=== PATIENT | female | born 2005 | race African-American/Black ===

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

== ENCOUNTER 2024-01-13 13:41 | Outpatient (CLI) | payer OTHER, SELFPAY ==
--- NOTE | ~2024-01-13 | US_ITS ---
EXAMINATION: US OB follow up DATE: 01/13/2024 14:45 INDICATION: Third trimester. TECHNIQUE: Real-time ultrasound of the pelvis was performed. COMPARISON: Ultrasound 12/17/2023, 05/29/2023 FINDINGS: There is a single living fetus in vertex presentation. The placenta is fundal. heart rate is 1 31 beats per minute (bpm). The amniotic fluid index is 8.2 cm, which is normal. The following biometric data were obtained: Biparietal diameter (BPD): 9.3 cm; head circumference (HC): 31.9 cm; abdominal circumference (AC): 32 .4 cm; femur length (FL): 7.1 cm. These measurements are discordant with high cephalic index. Estimated weight is 2946 g +/- 442 g, which correlates with the 17th percentile when 01/23/24 is used as estimated date of delivery. As single measurements, these parameters are each equal to the following estimated gestational ages: BPD: 38 weeks 0 days. HC: 36 weeks 0 days. AC: 36 weeks 2 days. FL: 36 weeks 2 days. estimated gestational age based solely on measurements from this exam is 36 weeks 5 days +/- 2 weeks 4 days. IMPRESSION: 1. Single living fetus in vertex presentation. 2. Estimated weight is 2946 g +/- 442 g, which correlates with the 17th percentile when 4 is used as estimated date of delivery. This date was set by ultrasound on 05/29/2023. 3. Discordant biometrics with high cephalic index. Reviewed, dictated and finalized at location A. IMPRESSION: 1. Single living fetus in vertex presentation. 2. Estimated weight is 2946 g +/- 442 g, which correlates with the 17th percentile when 01/23/24 is used as estimated date of delivery. This date was se t by ultrasound on 05/29/2023. 3. Discordant biometrics with high cephalic index.
== END 2024-01-13 13:42 | disposition home or self-care (01) ==
PROVIDERS: Visit Provider Obstetrics & Gynecology
DX: Z34.90 Encounter for supervision of normal pregnancy, unspecified, unspecified trimester (principal)
CPT/HCPCS: 76816

== ENCOUNTER 2024-01-18 02:24 | Inpatient (IN) | payer OTHER, SELFPAY ==
[2024-01-18] VITALS (146 sets, daily range): BP systolic 95–165; BP diastolic 14–125; PULSE 29–252; RESP 16–20; TEMP 36.3–37.1; O2SAT 79–100; BMI 28.8
[2024-01-18] MEDS: AMPICILLIN 2 GM/NS 100 ML 2 GM/100 ML BAG IVPB (04:10)
[2024-01-18] MEDS: LACTATED RINGERS 1,000 ML 125 ML IV CONT ×2 (04:10→05:43)
[2024-01-18 04:12] LABS: Basophils Percent Auto 0.2 % (0.2-1.2); Eosinophils Absolute Auto 0.1 K/mm3 (0-0.3); Eosinophils Percent Auto 0.4 % (0-4.4); Hematocrit 39.6 % (37.0-47.0); Hemoglobin 12.8 g/dL (12.0-15.0); Immature Granulocyte Absolute 0.08 K/mm3 (0.00-0.031); Immature Granulocyte Percent A 0.6 % (0-0.5); Lymphocytes Absolute Auto 3.41 K/mm3 (0.9-3.2); Lymphocytes Percent Auto 27.2 % (18.3-44.2); Mean Corpuscular HGB Conc 32.3 g/dl (32-36); Mean Corpuscular Hemoglobin 25.8 pg (26-34); Mean Corpuscular Volume 79.8 fl (80-100); Mean Platelet Volume 12.9 fl (7.4-10.4); Monocytes Absolute Auto 1.8 K/mm3 (0.1-0.6); Neutrophils Absolute Auto 7.2 K/mm3 (1.3-6.7); Neutrophils Percent Auto 57.6 % (45.5-73.1); Platelet Count Result 192 k/mm3 (150-375); Red Blood Count 4.96 M/mm3 (4.2-5.4); White Blood Count 12.5 K/mm3 (4.5-10.0)
--- NOTE | 2024-01-18 04:13 | LDADM ---
This patient, Lainey Fishman, was admitted to Labor/Delivery/Recovery 105 on 01/18/24 at 02:24. Plans for labor, pain management and were discussed with patient. Patient/family oriented to hospital policies and general routines including ID bracelet, bed and alarms, visiting hours, pain management, procedures, bathroom and other care routines, personal items, smoking policy, room service/diet and guest tray routines, infant security routines, and visiting hours. Patient/Family are encouraged to report perceived risks to care and to ask questions if they do not understand what they are told or what they should do. See OBIX for further documentation.
[2024-01-18] MEDS: ONDANSETRON INJ 4 MG/2 ML VIAL IV PUSH (04:22)
[2024-01-18 04:27] LABS: Giant Platelets Present; Platelet Estimate Adequate (Adequate)
[2024-01-18 04:28] LABS: Anisocytosis 1+; Schistocytes None Seen
[2024-01-18] MEDS: fentaNYL CITRATE INJ (*CRX) 100 MCG/2 ML VIAL 50 MCG IV PUSH (04:29)
--- NOTE | 2024-01-18 04:46 | WPDANESEPP ---
Anes - Eval Pre Procedure Procedure: labor epidural Date/Time: 01/18/24 04:46 Surgeon: arcadio Preop Diagnosis: pain during labor Pre Op Diagnosis: Labor Patient Data Age: 18 Gender: F Height: Weight: Last Vital Signs Pulse 76 01/18/24 04:31 BP 155/85 H 01/18/24 04:31 Pulse Ox 99 01/18/24 04:45 O2 Del Method Room Air 01/18/24 04:35 Allergies Allergy/AdvReac Type Severity Reaction Status Date / Time No Known Allergies Allergy Verified 01/14/24 15:35 Home Medications Medication Instructions Recorded Confirmed Type vit no.95-ferrous 1 tablet PO DAILY 12/26/23 01/14/24 History fumarate 28 mg-folic acid 800 mcg tablet () Laboratory Tests 01/18/24 04:05 WBC 12.5 H K/mm3 (4.5-10.0) RBC 4.96 M/mm3 (4.2-5.4) Hgb 12.8 g/dL (12.0-15.0) Hct 39.6 % (37.0-47.0) MCV 79.8 L fl (80-100) MCH 25.8 L pg (26-34) MCHC 32.3 g/dl (32-36) RDW 15.0 H % (11.5-14.5) Plt Count 192 k/mm3 (150-375) MPV 12.9 H fl (7.4-10.4) Immature Gran % (Auto) 0.6 H % (0-0.5) Neut % (Auto) 57.6 % (45.5-73.1) Lymph % (Auto) 27.2 % (18.3-44.2) Dewitt % (Auto) 14.0 H % (2.6-8.5) Eos % (Auto) 0.4 % (0-4.4) Baso % (Auto) 0.2 % (0.2-1.2) Lymph # (Auto) 3.41 H K/mm3 (0.9-3.2) Dewitt # (Auto) 1.8 H K/mm3 (0.1-0.6) Eos # (Auto) 0.1 K/mm3 (0-0.3) Baso # (Auto) 0.0 K/mm3 (0.0-0.1) Abs Immat Gran (auto) 0.08 H K/mm3 (0.00-0.031) Absolute Neuts (auto) 7.2 H K/mm3 (1.3-6.7) Absolute Nucleated RBC 0.000 K/mm3 (0.0-0.012) Nucleated RBC % 0.0 % (0.0-0.2) Platelet Estimate Adequate (Adequate) Giant Platelets Present Anisocytosis 1+ Schistocytes None seen RPR Pending Patient hx anesthesia problems: none Family hx anesthesia problems: none Results Review: All pre-operative results and documents have been reviewed as part of the pre-operative evaluation. PENDING SALE TO [facility] Past Medical History Medical History Patient denies significant medical history Family History Family History (Updated 01/14/24 @ 15:43 by Alfreda Sutherland RN) Other Unknown family medical history Social History Social History Social History: patient denies tobacco or alcohol. Uses marijuana daily. Smoking status: Former smoker Second hand tobacco smoke exposure: No Alcohol intake: never Substance use: never Substance use type: marijuana Do You Feel Safe in your Home?: Yes Lack of Transportation: No Lack of Food: Never True Current Housing: I Have Housing Concerned About Future Housing: No Difficulty Paying Gas/Electric Bills: No Difficulty Paying for Meds: No Currently Unemployed: No Education: High School Diploma/GED Difficulty w/ Childcare or Family Care: No Living arrangements: other Additional living arrangements comments: fiance Occupation/Education: occupation Gender identity (if verbalized by the patient): Female Sexual Orientation (if Verbalized by the Patient): Straight or Heterosexual Spiritual care concerns: No Exam Day of Procedure 01/18/24 04:46
[2024-01-18] MEDS: AMPICILLIN 1 GM/NS 50 ML 1 GM/50 ML BAG IVPB (08:02)
[2024-01-18] MEDS: OXYTOCIN 30 UNITS/NS 500 ML 30 UNITS/500 ML BAG 999 UNITS IV CONT (09:14)
[2024-01-18] MEDS: OXYTOCIN 30 UNITS/NS 500 ML 30 UNITS/500 ML BAG 125 UNITS IV CONT (09:24)
--- NOTE | 2024-01-18 09:29 | PM.IMHP ---
H&P: HPI History of Present Illness Date/Time: 01/18/24 09:29 Chief Complaint: Contractions Narrative: Patient admitted in active labor. PNC significant for known h/o frequent PVC. She has had cardiology evaluation. GBS positive. Review of Systems Review of Systems: All systems reviewed & are unremarkable except as noted in HPI and below Constitutional: Constitutional: Reports no additional constitutional complaints and Denies headache(s) Eyes: Eyes: Denies spots in vision ENT: Reports system reviewed and no additional complaints, except as documented and Denies headache(s) Cardiovascular: Cardiovascular: Denies chest pain and Denies dyspnea Respiratory: Respiratory: Denies dyspnea Gastrointestinal: Gastrointestinal: Reports no additional gastrointestinal complaints Genitourinary: Genitourinary: Reports amenorrhea Musculoskeletal: Musculoskeletal: Reports no additional musculoskeletal complaints Integumentary/Breasts: Skin/Breast: Denies breast mass and Denies rash Neurologic: Denies headache(s) Psychiatric: Psychiatric: Reports no additional psychiatric complaints PMF Past Medical History Medical History Patient denies significant medical history Family History Family History Other Unknown family medical history Social History Social History Social History: patient denies tobacco or alcohol. Uses marijuana daily. Smoking status: Former smoker Second hand tobacco smoke exposure: No Alcohol intake: never Substance use: never Substance use type: marijuana Do You Feel Safe in your Home?: Yes Lack of Transportation: No Lack of Food: Never True Current Housing: I Have Housing Concerned About Future Housing: No Difficulty Paying Gas/Electric Bills: No Difficulty Paying for Meds: No Currently Unemployed: No Education: High School Diploma/GED Difficulty w/ Childcare or Family Care: No Living arrangements: other Additional living arrangements comments: fiance Occupation/Education: occupation Gender identity (if verbalized by the patient): Female Sexual Orientation (if Verbalized by the Patient): Straight or Heterosexual Spiritual care concerns: No Meds Home Medications and Allergies Home Medications Medication Instructions Recorded Confirmed Type vit no.95-ferrous 1 tablet PO DAILY 12/26/23 01/14/24 History fumarate 28 mg-folic acid 800 mcg tablet () Allergies Allergy/AdvReac Type Severity Reaction Status Date / Time No Known Allergies Allergy Verified 01/14/24 15:35 Vital Signs Vital Signs - 24 hr 01/18/24 03:08 01/18/24 03:11 01/18/24 03:16 Temperature Pulse Rate 65 Blood Pressure 144/102 H Pulse Oximetry 100 100 100 Oxygen Delivery 01/18/24 03:21 01/18/24 03:26 01/18/24 03:28 Temperature Pulse Rate Blood Pressure Pulse Oximetry 100 98 100 Oxygen Delivery 01/18/24 03:31 01/18/24 03:33 01/18/24 03:34 Temperature 97.6 F Pulse Rate 71 Blood Pressure 139/98 H Pulse Oximetry 99 97 Oxygen Delivery 01/18/24 03:39 01/18/24 03:46 01/18/24 04:30 Temperature Pulse Rate 69 Blood Pressure 157/98 H Pulse Oximetry 100 99 Oxygen Delivery 01/18/24 04:31 01/18/24 04:35 01/18/24 04:40 Temperature Pulse Rate 76 Blood Pressure 155/85 H Pulse Oximetry 99 97 Oxygen Delivery 01/18/24 04:45 01/18/24 04:46 01/18/24 04:50 Temperature Pulse Rate 64 Blood Pressure 143/86 H Pulse Oximetry 99 99 Oxygen Delivery 01/18/24 04:55 01/18/24 04:59 01/18/24 05:04 Temperature Pulse Rate 75 Blood Pressure 131/94 H Pulse Oximetry 96 100 100 Oxygen Delivery 01/18/24 05:06 01/18/24 05:07 01/18/24 05:09 Temperature Pulse Rate 74 70 65 Blood Pres
--- NOTE | 2024-01-18 09:33 | PM.OBPRVD ---
OB - Vaginal Delivery Note Procedure Delivery date: 01/18/24 Events: Other (H/o PVC) Delivery monitor: External FHT Route of delivery: Episiotomy description: None Laceration Description: None Specimen: No Quantitative Blood Loss (ml): 200 Anesthesia type: Epidural Disposition: Floor Complications: No immediate complications Narrative: She was admitted in active labor. She has SROM clear. She progressed to complete. Forebag was AROMed clear fluid. She delivered male infant over intact perineum. Bracey Baby Date of : 01/18/24 Time of : 09:11 Weeks of gestation at delivery: 38 gender: Male presentation: vertex position: Left Occiput Anterior Placenta delivery description: Spontaneous Cord Vessel Description: 3 Vessels, Clamped/Cut and Delayed Cord Clamping score one minute: 8 score five minutes: 9 AMG Delivery Billing Delivery Delivery: Delivery Charge
--- NOTE | 2024-01-18 12:10 | OBPPTRN ---
Patient transferred to post room #283 via wheelchair. Support person present. Oriented to unit, room, information board, rooming in, admission packet and security measures. Patient verbalizes understanding.
--- NOTE | 2024-01-18 17:20 | PC.NURSE ---
Breast pump provided due to maternal preference. Instructions given on cleaning, care, usage, that there should be no pain, pumping schedule for milk production, collection, and storage of human milk. Patient was assessed for correct placement, flange size, to pump for comfort and nipple stretching/stimulation for adequate milk production every 3 hours (8 times in 24 hours) 1-2 times at night.
--- NOTE | 2024-01-18 20:02 | PC.NURSE ---
1999 - Patient stated that she would not wish to continue to breastfeed and would like to proceed with bottle feeding enfamil
[2024-01-19 04:08] VITALS: BP 140/80; PULSE 77; RESP 18; TEMP 37; O2SAT 97
[2024-01-19 04:36] LABS: Hematocrit 35.4 % (37.0-47.0); Hemoglobin 11.4 g/dL (12.0-15.0)
--- NOTE | 2024-01-19 07:23 | WPDANLDPN2 ---
Anes-Prog Note L&D Date/Time: 01/19/24 07:23 Comfortable throughout: labor and delivery Neuraxial method: epidural Epidural/Spinal procedure site: clean & non-tender Neuro status: Neuro function grossly intact. Cardiovascular status: normal Respiratory status: normal Airway patency: baseline Mental status: baseline Post-Op hydration status: normal Vital Signs: Last Vital Signs Temp 98.6 F 01/19/24 04:08 Pulse 77 01/19/24 04:08 Resp 18 01/19/24 04:08 BP 140/80 01/19/24 04:08 Pulse Ox 97 01/19/24 04:08 O2 Del Method Room Air 01/18/24 15:30 Pain score (VAS): 0/10 I/O: Intake & Output 01/18/24 01/18/24 01/19/24 15:59 23:59 07:59 Intake Total 500 Output Total 250 Balance 250 Post-procedural complaints: none Patient feedback: Patient satisfied with anesthetic care.
[2024-01-19 07:45] VITALS: BP 123/81; PULSE 70; RESP 18; TEMP 37.7; O2SAT 98
[2024-01-19] MEDS: MULTIVIT/MIN/PREN/FOL AC/IRON TABLET 1 TAB PO (10:32)
[2024-01-19] MEDS: DOCUSATE SODIUM 100 MG CAPSULE PO (10:32)
--- NOTE | 2024-01-19 10:45 | PC.NURSE ---
0930 Introductions were made, then consulted with patient to assess needs related to /bottle feeding. Discussed with mother her?plans to feed?her and the?experience so far. Mother states she is planning to bottle feed at this time. Resources provided for inpatient services with the feeding sheet, mom/baby guide and name written on the communication board should mom decide to attempt to breastfeed before discharge. Mother voiced understanding of information and will call if there is a request for assistance. Reported to the Primary RN.
[2024-01-19 15:10] LABS: Rapid Plasma Reagin Non-Reactive (NonReactive)
[2024-01-19 19:40] VITALS: BP 116/98; PULSE 88; RESP 18; TEMP 36.6; O2SAT 100
[2024-01-20 08:10] VITALS: BP 137/90; PULSE 90; RESP 18; TEMP 36.8; O2SAT 100
--- NOTE | 2024-01-20 08:12 | P.DS_ITS ---
DS: Admitting Diagnosis Discharge Date 01/20/24 Admitting Diagnosis intrauterine at term DS: Discharge Diagnosis Discharge Diagnosis (1) Normal vaginal delivery: Code(s): O80 - Encounter for full-term uncomplicated delivery Status: Acute OB - DS: Summary OB Procedures : None OB Procedures Intrapartum: Spontaneous Vag Delivery OB Procedures: : None Peripartum Data Laceration Description: None Episiotomy description: None Status at Discharge Functional status at discharge: independent ambulation Overall status at discharge: patient is back to baseline Time Spent with Patient Time attestation: Total time spent providing and/or coordinating discharge services: Time spent: Less than 30 minutes Exam Const: General: comfortable and no acute distress Resp: Effort & Inspection: normal respiratory effort Auscultation: clear to auscultation bilaterally Cardio: Rate: regular rate GI: GI Palp: Yes Soft to palpation Auscultation: normal bowel sounds Other: Fundus firm below umbilicus Psych: Appearance: grossly normal Mental Status: mental status grossly normal Affect: normal affect DS: Data Data Completed and Pending Labs on day of discharge: Labs from last 24 hours 01/18/24 04:05 RPR Non-reactive Discharge Plan Discharge Discharging Clinician: Adrien Garcia Patient Disposition: Home, Self-Care Activity: may shower and pelvic rest Diet: regular Patient Instructions: Antibiotic Form, Vaginal Delivery (DC) Stand Alone Forms: General Discharge Information Follow-up/Referrals: Adrien Garcia MD [Physician] - Discharge Medications: New acetaminophen 500 mg tablet 500 mg PO Q6H PRN (Reason: pain) Qty: 30 0RF ibuprofen 600 mg tablet 600 mg PO Q6H PRN (Reason: pain) Qty: 30 0RF Continued PNV cmb#95-ferrous fumarate-FA [] 28 mg iron- 800 mcg Tablet 1 tablet PO DAILY Date of admission: 01/18/24 02:24 Primary Care Provider: PHYSICIAN,[employer] Admitting Provider: Adrien Garcia Attending physician on admission: Adrien Garcia Condition: Stable
--- NOTE | 2024-01-20 09:12 | PC.NURSE ---
0830 Primary RN reports that mother is bottle feeding only with some pumping and made a decision not to breastfeed. She confirmed with patient that there's no pain with pumping.
[2024-01-21 09:18] VITALS: BP 124/82; PULSE 93; RESP 18; TEMP 37.1; O2SAT 100
== END 2024-01-20 10:56 | disposition home or self-care (01) | DRG 560 ==
LOC: ANHLDR 03:45 → ANHOB2 13:25
PROVIDERS: Admitting Provider Obstetrics & Gynecology; Visit Provider Student in an Organized Health Care Education/Training Program
DX: O99.824 Streptococcus B carrier state complicating childbirth (principal); Z37.0 Single live birth; Z3A.38 38 weeks gestation of pregnancy; O32.6XX0 Maternal care for compound presentation, not applicable or unspecified
CPT/HCPCS: 36415; 84112; 85014; 85018; 85025; 86592; 86850; 86900; 86901; A9270; J0290; J2405; J2590; J2795; J3010; J7120

== ENCOUNTER 2024-07-12 13:33 | Outpatient (CLI) | payer MEDICAID, SELFPAY ==
[2024-07-12 14:23] LABS: Beta HCG Quantitative < 2.39 mIU/ML
== END 2024-07-12 13:34 | disposition home or self-care (01) ==
LOC: ANHLAB 13:34
PROVIDERS: Visit Provider Student in an Organized Health Care Education/Training Program
DX: N92.6 Irregular menstruation, unspecified (principal)
CPT/HCPCS: 36415; 84702

== ENCOUNTER 2025-01-09 23:17 | Emergency (ER) | payer OTHER, SELFPAY ==
--- OUTSIDE RECORDS SUMMARY | 2025-01-09 23:20 | XMS_ITS | Clinical Summary ---
Author Organization [facility] ospital Address [address] [place] [address] Care Team Providers Care Tool Specialist Name Role Phone No, Physician Primary Care Provider [phone] No, Physician Unavailable Allergies No known active allergies Medications acetaminophen (TYLENOL) 325 mg tablet Take 2 tablets (650 mg total) by mouth every 6 (six) hours as needed for pain 30 tablet 0 Active bacitracin 500 unit/gram ointment Apply topically 2 (two) times a day 120 g 0 Active ondansetron (ZOFRAN) 4 mg tablet Take 1 tablet (4 mg total) by mouth every 8 (eight) hours as needed for nausea or vomiting Active ondansetron (ZOFRAN) 4 mg tabletIndicatio ns:Excessive Vomiting in Take 1 tablet (4 mg total) by mouth every 6 (six) hours as needed for nausea or vomiting 40 tablet 4 Active Active Problems Problem Noted Date Diagnosed Date PVC's (premature ventricular contractions) 05/18 Overview (06/07/2020): Presented with CP. Incidental finding of PVCs 1. History of irregular heart beat as a child. 2. Evaluation in October 2019: A. ECG: Frequent PVCs: LBB morphology with superior axis, abnormal B. Holter October 2019, 20% PVC burden, abnormal C. EST: October 2019: + PVCs in baseline and recovery, suppressed during peak rates D. CMR November 2019, normal 3. Repeat Holter placed in May 2020. Encounters Date Type Department Care Team Description 11/09/2024 10:18 AM BIOMEDICAL ENGINEER - 11/09/2024 1:04 PM BIOMEDICAL ENGINEER Emergency [facility] Emergency Department [address] [place] [address] Winter Garza MD Chest pain, unspecified type (Primary Dx); Costochondritis Discharge Disposition: Discharge to home or self care from Last 3 Months Immunizations Immunization Administration Dates Next Due DTaP / IPV 12/06/2008 DTaP, Unspecified 08/16/2005, 5,2004,07/23 HPV, Bivalent 08/11/2014,06/01/2014 HPV9 07/19/2015 Hep A, Pediatric 06/05/2007 Hep A, Unspecified 10/17/2006 Hep B, Adolescent or Pediatric 2004 Hep B, Unspecified 2004,2004, 004 HiB 08/16/2005, 5,2004,07/23 Influenza, Quadrivalent, Spl it, Preservative Free, Intramuscular 12/12/2021 Influenza, Split 07/05/2009,12/06/2008 Influenza, Trivalent, Preser vative Free, Intramuscular 12/18/2010 Influenza, Unspecified 10/17/2006,11/26/2005,04/2005 MMR 12/06/2008,08/16/2005 Meningococcal Conjugate (Menveo) 12/12/2021,02/0 02/2021 Meningococcal MCV4P (Menactra) 07/31/2015 Pneumococcal Conjugate PCV 13 08/16/2005 ,2004,2004,07/23 Polio, Unspecified 2004,2004, 004 Tdap 06/01/2014 Varicella 12/06/2008,06/05/2007,08/16/2005 Social History Tobacco Use Types Packs/Day Years Used Date Smoking Tobacco: Never Assessed Smokeless Tobacco: Never Personal Safety Answer Date Recorded Have you ever been in or are you currently in a harmful physical or emotional relationship or is someone making you feel afraid or unsafe? Denies 11/09/2024 Comments No Sex and Gender Information Value Date Recorded Sex Assigned at Not on file Legal Sex Female 6:25 AM BIOMEDICAL ENGINEER Gender Identity Not on file Sexual Orientation Not on file Obstetrics History Para Term AB IAB SAB Ectopic Multiple Livin g Live Births 1 0 0 0 0 0 0 0 Date Outcome GA Total Labor Labor/2nd/3rd Weight Sex Type Anes PTL Melany A1 A5 Name Clin Last Filed Vital Signs Vital Sign Reading Time Taken Comments Blood Pressure 114/72 11/09/2024 1:04 PM BIOMEDICAL ENGINEER Pulse 70 11/09/2024 1:04 PM BIOMEDICAL ENGINEER Temperature 36.9 C (98.4 F) 11/09/2024 9:47 AM BIOMEDICAL ENGINEER Respiratory Rate 14 11/09/2024 1:04 PM BIOMEDICAL ENGINEER Oxygen Saturation 100% 11/09/2024 1:04 PM BIOMEDICAL ENGINEER Inhaled Oxygen Concentration - - Weight 85.6 kg (188 lb 11.4 oz) 024 11:14 AM BIOMEDICAL ENGINEER Height 177.8 cm (5' 10 ) 11/09/2024 9:47 AM BIOMEDICAL ENGINEER Body Mass Index - - Plan of Treatment Health Maintenance Due Date Last Done Comments Chlamydia and Gonorrhea (GC/ CT) Screening 2004 Depression Screening 2004 Hepatitis C Screening 2004 Meningococcal B Vaccine (1 o f 2 - Standard) 2020 Regular Well Visit/Exam 18-64 2022 DTaP/Tdap/Td Vaccine (7 - Td or Tdap) 06/01/2024 06/01/2014, 12/06/2008, 08/16/2005, Additional history exists Influenza Vaccine (#1) 2024 , 12/12/2021, 12/18/2010, Additional history exists Hepatitis B Screening Completed 2004 , 2004, 2004, Additional history exists Pneumococcal vaccine <65 Completed 005, 2004, 2004, Additional history exists Varicella Vaccines Completed 12/06/2008, 0 06/05/2007, 08/16/2005 HPV Vaccines Completed 07/19/2015, 07/15, 06/01/2014 Meningococcal Vaccine Completed 12/12/2021 , 11/17/2020, 07/31/2015 Procedures Procedure Name Priority Date/Time Associated Diagnosis Comments TROPONIN I HIGH-SENSITIVITY 2-HOUR Timed 11/09/2024 12:50 PM BIOMEDICAL ENGINEER TROPONIN I HIGH-SENSITIVITY SERIES (BASELINE, 2HR, 4HR, 6HR) STAT 11/09/2024 10:49 AM BIOMEDICAL ENGINEER XR CHEST PA LATERAL 2 VIEWS ED 11/09/2024 10:44 AM BIOMEDICAL ENGINEER EGFR STAT 11/09/2024 10:32 AM BIOMEDICAL ENGINEER DIFFERENTIAL AUTO STAT 11/09/2024 10: 32 AM BIOMEDICAL ENGINEER COMPREHENSIVE METABOLIC PANEL STAT 11/09/2024 10:32 AM BIOMEDICAL ENGINEER CBC WITH AUTO DIFFERENTIAL STAT 11/09/2024 10:32 AM BIOMEDICAL ENGINEER POCT HCG, URINE Routine 11/09/2024 10:25 AM BIOMEDICAL ENGINEER ECG 12-LEAD STAT 11/09/2024 9:58 AM BIOMEDICAL ENGINEER from Last 3 Months Results * Troponin I high-sensitivity 2-hour (11/09/2024 12:50 PM BIOMEDICAL ENGINEER) Trop I hs <4 <=17 ng/L Comment: Interpretive Data For further hscTnI resources including the diagnostic algorithm and an aid in interpretation, copy and paste this link: https://[email or web address]/show/[email or web address] Current Interpretive Data last revised 2020. Trop I hs delta 0 ng/L SOFI GONZALEZ Trop I hs interp Insignificant SOFI Maguire Blood 11/09/2024 12:5 0 PM BIOMEDICAL ENGINEER 11/09/2024 1:11 PM BIOMEDICAL ENGINEER us Winter Garza MD LAB BLOOD ORDERABLES Final Result SOFI RUFFIN [facility] [place] [address] * Troponin I high-sensitivity series (baseline, 2hr, 4hr, 6hr) (11/09/2024 10:49 AM BIOMEDICAL ENGINEER) Trop I hs <4 <=17 ng/L Comment: Interpretive Data For further hscTnI resources including the diagnostic algorithm and an aid in interpretation, copy and paste this link: https://bjhlab.testcatalog.org/show/[email or web address] Current Interpretive Data last revised 2020. Blood 11/09/2024 10:4 9 AM BIOMEDICAL ENGINEER 11/09/2024 11:04 AM BIOMEDICAL ENGINEER Winter Garza MD LAB BLOOD ORDERABLES [facility] [place] [address] * XR Chest Pa Lateral 2 Views (11/09/2024 10:44 AM BIOMEDICAL ENGINEER) Anatomical Region Laterality Modality Body, Chest N/A Computed Radiogr aphy 11/09/2024 11:2 4 AM BIOMEDICAL ENGINEER Impressions 11/09/2024 12:02 PM BIOMEDICAL ENGINEER The current study is compared with the prior radiograph dated 10/25/2021. No consolidation, pleural effusion, or pneumothorax. Cardiomediastinal silhouette is normal. Dictated by: Sandra Krause M.D. The radiology attending physician has personally reviewed this study, and had reviewed and/or edited this written report and agrees with it. Electronically signed by: Ron Camara M.D. Narrative 11/09/2024 12:02 PM BIOMEDICAL ENGINEER EXAMINATION: 2 view chest radiograph Procedure Note Ron Camara MD - 11/09/2024 EXAMINATION: 2 view chest radiograph IMPRESSION: The current study is compared with the prior radiograph dated 10/25/2021. No consolidation, pleural effusion, or pneumothorax. Cardiomediastinal silhouette is normal. Dictated by: Sandra Krause M.D. The radiology attending physician has personally reviewed this study, and had reviewed and/or edited this written report and agrees with it. Electronically signed by: Ron Camara M.D. Winter Garza MD IMG XR PROCEDURES Final Res ult * eGFR (11/09/2024 10:32 AM BIOMEDICAL ENGINEER) eGFR 90 >=60 mL/min/1. 73 m2 Comment: Interpretive Data Reference Interval Normal >/= 90 mL/min/1.73m2 Mildly decreased* 60 - 89 mL/min/1.73m2 Mildly to moderately decreased 45 - 59 mL/min/1.73m2 Moderately to severely decreased 30 - 44 mL/min/1.73m2 Severely decreased 15 - 29 mL/min/1.73m2 Kidney Failure < 15 mL/min/1.73m2 *Relative to young adult level Estimated glomerular filtration rate is determined by the 2020 CKD-EPI equation recommended by the National Kid[employer] Foundation (A Unifying Approach to GFR Estimation: Recommendations of the NKF-ASK Task Force on Reassessing the Inclusion of Race in Diagnosing Kidney Disease, JASN 2020). The CKD-EPI equation should not be used for patients with unstable renal function and has not been validated in children and those over 70. Current interpretive data was last reviewed 2021. Blood 11/09/2024 10:3 2 AM BIOMEDICAL ENGINEER 11/09/2024 10:43 AM BIOMEDICAL ENGINEER Adarsh Martinez MD LAB BLOOD ORDERABLES F inal Result [facility] Department of Laboratories [place], [place] [id number] * Differential, auto (11/09/2024 10:32 AM BIOMEDICAL ENGINEER) Neutrophil abs 2.9 1.5 - 6.5 K/cumm Imm gran abs 0.0 0.0 - 0.1 K/cumm [facility] Lymphocyte abs 2.4 0.8 - 3.3 K/cumm [facility] Monocyte abs 0.6 0.2 - 0.8 K/cumm [facility] Eosinophil abs 0.0 0.0 - 0.5 K/cumm [facility] Basophil abs 0.0 0.0 - 0.1 K/cumm [facility] Neutrophil pct 48.5 % [facility] Comment: Interpretive Data Percent cell count reference ranges are not reported, since discordance with absolute values may lead to misinterpretation of CBC data. Current Interpretive Data was last revised on 2018. Imm gran pct 0.3 % [facility] Comment: Interpretive Data Percent cell count reference ranges are not reported, since discordance with absolute values may lead to misinterpretation of CBC data. Current Interpretive Data was last revised on 2018. Lymphocyte pct 40.8 % [facility] Comment: Interpretive Data Percent cell count reference ranges are not reported, since discordance with absolute values may lead to misinterpretation of CBC data. Current Interpretive Data was last revised on 2018. Monocyte pct 9.8 % [facility] Comment: Interpretive Data Percent cell count reference ranges are not reported, since discordance with absolute values may lead to misinterpretation of CBC data. Current Interpretive Data was last revised on 2018. Eosinophil pct 0.3 % [facility] Comment: Interpretive Data Percent cell count reference ranges are not reported, since discordance with absolute values may lead to misinterpretation of CBC data. Current Interpretive Data was last revised on 2018. Basophil pct 0.3 % [facility] Comment: Interpretive Data Percent cell count reference ranges are not reported, since discordance with absolute values may lead to misinterpretation of CBC data. Current Interpretive Data was last revised on 2018. Blood 11/09/2024 10:3 2 AM BIOMEDICAL ENGINEER 11/09/2024 10:43 AM BIOMEDICAL ENGINEER us Adarsh Martinez MD LAB BLOOD ORDERABLES F inal Result [facility] [place] [address] * CBC with auto differential (11/09/2024 10:32 AM BIOMEDICAL ENGINEER) [facility] WBC 5.9 3.8 - 9.9 K/cumm Hgb 13.1 11.9 - 15.5 g/dL [facility] Hct 39.8 35.6 - 45.5 % [facility] Plt 182 150 - 400 K/cumm [facility] MPV 11.2 9.1 - 12.3 fL [facility] RBC 4.83 3.90 - 5.20 M/cumm [facility] MCV 82.4 81.3 - 96.4 fL [facility] MCH 27.1 27.1 - 33.3 pg [facility] MCHC 32.9 32.3 - 35.7 g/dL [facility] RDW CV 13.0 11.1 - 14.9 % [facility] RDW SD 39.2 35.7 - 48.1 fL [facility] NRBC abs 0.00 0.00 - 0.01 K/cumm [facility] Blood Venous blood specimen / Unknown 11/09/2024 10:32 AM BIOMEDICAL ENGINEER 11/09/2024 10:43 AM BIOMEDICAL ENGINEER Winter Garza MD LAB BLOOD ORDERABLES Final Result [facility] [place] [address] * Comprehensive metabolic panel (11/09/2024 10:32 AM BIOMEDICAL ENGINEER) [facility] Sodium 141 135 - 145 mmol/L Potassium, pl 4.4 3.3 - 4.9 mmol/L [facility] Chloride 106 97 - 110 mmol/L [facility] CO2 26 22 - 32 mmol/L [facility] Anion gap 9 2 - 15 mmol/L [facility] BUN 13 6 - 25 mg/dL [facility] Creatinine 0.93 0.60 - 1.10 mg/dL [facility] Glucose 95 70 - 199 mg/dL [facility] Comment: Interpretive Data Fasting glucose >/= 126 mg/dl is diagnostic for diabetes. Fasting is defined as no caloric intake for at least 8 hours. Fasting glucose between 100 mg/dl to 125 mg/dl is diagnostic of prediabetes. In a patient with classic symptoms of hyperglycemia or hyperglycemic crisis, a random glucose >/= 200 mg/dl is diagnostic for diabetes. In the absence of unequivocal hyperglycemia, results should be confirmed by repeat testing. The classification and Diagnosis of Diabetes Diabetes Care 2021; 46: S19-S40. Current interpretive data was last revised 2022. Calcium 9.2 8.5 - 10.3 mg/dL [facility] Bilirubin, total 0.2 0.1 - 1.2 mg/dL [facility] Protein, pl 7.7 6.5 - 8.5 g/dL [facility] Albumin 4.4 3.5 - 5.0 g/dL [facility] Alk phos 55 40 - 130 Units/L [facility] ALT 28 7 - 45 Units/L [facility] AST 25 10 - 45 Units/L [facility] Blood 11/09/2024 10:3 2 AM BIOMEDICAL ENGINEER 11/09/2024 10:43 AM BIOMEDICAL ENGINEER Winter Garza MD LAB BLOOD ORDERABLES Final Result [facility] [place] [address] * POCT hCG, urine (11/09/2024 10:25 AM BIOMEDICAL ENGINEER) HCG, ur, POC Negative Negative Lot Number [id number] QC Backgroud Clear Acceptable QC Control Line Acceptable Urine 11/09/2024 10:2 5 AM BIOMEDICAL ENGINEER Winter Garza MD POINT OF CARE TEST ORDERABL ES Final Result * ECG 12-LEAD (11/09/2024 9:58 AM BIOMEDICAL ENGINEER) Narrative [facility] - 11/09/2024 9:58 AM BIOMEDICAL ENGINEER Adarsh Martinez MD 11/09/2024 10:00 AM ECG 12 lead Date/Time: 11/09/2024 9:58 AM Performed by: Adarsh Martinez MD Authorized by: Adarsh Martinez MD Rate: ECG rate: 77 ECG rate assessment: normal Rhythm: Rhythm: sinus rhythm Ectopy: Ectopy: PVCs PVCs: Frequent QRS: QRS axis: Normal QRS intervals: Normal Conduction: Conduction: normal ST segments: ST segments: Non-specific T waves: T waves: inverted Inverted: II, III, aVF, V3, V4, V5 and V6 Previous ECG: Previous ECG: Compared to current Date of previous EC01/30/2022 Comparison ECG info: New inferior lateral t wave inversions Similarity: Changes noted Interpretation: Interpretation: non-specific Recommended Follow-up: Recommended follow up: further workup in the ED Procedure Note Adarsh Martinez MD - 11/09/2024 9:58 AM CST Procedure ECG 12 lead Date/Time: 11/09/2024 9:58 AM Performed by: Adarsh Martinez MD Authorized by: Adarsh Martinez MD Rate: ECG rate: 77 ECG rate assessment: normal Rhythm: Rhythm: sinus rhythm Ectopy: Ectopy: PVCs PVCs: Frequent QRS: QRS axis: Normal QRS intervals: Normal Conduction: Conduction: normal ST segments: ST segments: Non-specific T waves: T waves: inverted Inverted: II, III, aVF, V3, V4, V5 and V6 Previous ECG: Previous ECG: Compared to current Date of previous EC01/30/2022 Comparison ECG info: New inferior lateral t wave inversions Similarity: Changes noted Interpretation: Interpretation: non-specific Recommended Follow-up: Recommended follow up: further workup in the ED Adarsh Martinez MD 11/09/24 1000 us Winter Garza MD ECG ORDERABLES Final Resul t [facility] from Last 3 Months Insurance [facility] [place] Care Teams Tool Specialist Relationship Specialty Start Date End Date No, Physician PCP - General 11/29/23 No, Physician 11/29/23
--- OUTSIDE RECORDS SUMMARY | 2025-01-09 23:20 | XMS_ITS | Referral Summary ---
Author Organization [facility] ospital Address [address] [place] [address] Care Team Providers Care Pear Picker Name Role Phone No, Physician Primary Care Provider [phone] No, Physician Unavailable Encounters Date Type Department Care Team Description 11/09/2024 10:18 AM SKI MAKER - 11/09/2024 1:04 PM [facility] Emergency [facility] Emergency Department [address] [place] [address] Winter Garza MD Chest pain, unspecified type (Primary Dx); Costochondritis Discharge Disposition: Discharge to home or self care from Last 3 Months Allergies No known active allergies Medications acetaminophen [...] 3. Repeat Holter placed in May 2020. Immunizations Immunization Administration Dates Next Due DTaP [...] on file Legal Sex Female 6:25 AM SKI MAKER Gender Identity Not on file Sexual Orientation Not on file Last Filed Vital Signs Vital Sign Reading Time Taken Comments Blood Pressure 114/72 11/09/2024 1:04 PM SKI MAKER Pulse 70 11/09/2024 1:04 PM SKI MAKER Temperature 36.9 C (98.4 F) 11/09/2024 9:47 AM SKI MAKER Respiratory Rate 14 11/09/2024 1:04 PM SKI MAKER Oxygen Saturation 100% 11/09/2024 1:04 PM SKI MAKER Inhaled Oxygen Concentration - - Weight 85.6 kg (188 lb 11.4 oz) 024 11:14 AM SKI MAKER Height 177.8 cm (5' 10 ) 11/09/2024 9:47 AM SKI MAKER Body Mass Index - - Plan of Treatment Not on file Procedures Procedure Name Priority Date/Time Associated Diagnosis Comments TROPONIN I HIGH-SENSITIVITY 2-HOUR Timed 11/09/2024 12:50 PM SKI MAKER TROPONIN I HIGH-SENSITIVITY SERIES (BASELINE, 2HR, 4HR, 6HR) STAT 11/09/2024 10:49 AM SKI MAKER XR CHEST PA LATERAL 2 VIEWS ED 11/09/2024 10:44 AM SKI MAKER EGFR STAT 11/09/2024 10:32 AM SKI MAKER DIFFERENTIAL AUTO STAT 11/09/2024 10: 32 AM SKI MAKER COMPREHENSIVE METABOLIC PANEL STAT 11/09/2024 10:32 AM SKI MAKER CBC WITH AUTO DIFFERENTIAL STAT 11/09/2024 10:32 AM SKI MAKER POCT HCG, URINE Routine 11/09/2024 10:25 AM SKI MAKER ECG 12-LEAD STAT 11/09/2024 9:58 AM SKI MAKER from Last 3 Months Results * Troponin I high-sensitivity 2-hour (11/09/2024 12:50 PM SKI MAKER) Trop I hs <4 <=17 ng/L Comment: Interpretive Data For further hscTnI resources including the diagnostic algorithm and an aid in interpretation, copy and paste this link: [email or web address]/show/[email or web address] Current Interpretive Data last revised 2020. Trop I hs delta 0 ng/L [facility] Trop I hs interp Insignificant [facility] Blood 11/09/2024 12:5 0 PM SKI MAKER 11/09/2024 1:11 PM SKI MAKER Winter Garza MD LAB BLOOD ORDERABLES Final Result Performing Organization Address [facility] Co de Phone Number [facility] [place] [address] * Troponin I high-sensitivity series (baseline, 2hr, 4hr, 6hr) (11/09/2024 10:49 AM SKI MAKER) Pathologist [facility] Trop I hs <4 <=17 ng/L Comment: Interpretive Data For further hscTnI resources including the diagnostic algorithm and an aid in interpretation, copy and paste this link: [email or web address]/show/[email or web address] Current Interpretive Data last revised 2020. Blood 11/09/2024 10:4 9 AM SKI MAKER 11/09/2024 11:04 AM SKI MAKER Winter Garza MD LAB BLOOD ORDERABLES Final Result Performing Organization Address [facility]/ZIP Co de Phone Number [facility] [place] [address] * XR Chest Pa Lateral 2 Views (11/09/2024 10:44 AM SKI MAKER) Anatomical Region Laterality Modality Body, Chest N/A Computed Radiogr aphy 11/09/2024 11:2 4 AM SKI MAKER Impressions 11/09/2024 12:02 PM SKI MAKER The current study is compared with the prior radiograph dated 10/25/2021. No consolidation, pleural effusion, or pneumothorax. Cardiomediastinal silhouette is normal. Dictated by: Sandra Krause M.D. The radiology attending physician has personally reviewed this study, and had reviewed and/or edited this written report and agrees with it. Electronically signed by: Ron Camara M.D. Narrative 11/09/2024 12:02 PM SKI MAKER EXAMINATION: 2 view chest radiograph Procedure Note [...] it. Electronically signed by: Ron Camara M.D. us Winter Garza MD IMG XR PROCEDURES Final Res ult * eGFR (11/09/2024 10:32 AM SKI MAKER) eGFR 90 >=60 mL/min/1. 73 m2 Comment: [...] reviewed 2021. Blood 11/09/2024 10:3 2 AM SKI MAKER 11/09/2024 10:43 AM SKI MAKER us Adarsh Martinez MD LAB BLOOD ORDERABLES F inal Result [facility] [place] [address] * Differential, auto (11/09/2024 10:32 AM SKI MAKER) Neutrophil abs 2.9 1.5 - 6.5 K/cumm Imm gran abs 0.0 0.0 - 0.1 K/cumm [facility] Lymphocyte abs 2.4 0.8 - 3.3 K/cumm [facility] Monocyte abs 0.6 0.2 - 0.8 K/cumm [facility] Eosinophil abs 0.0 0.0 - 0.5 K/cumm [facility] Basophil abs 0.0 0.0 - 0.1 K/cumm [facility] Neutrophil pct 48.5 % [facility] Comment: Interpretive Data Percent cell count reference ranges are not reported, since discordance with absolute values may lead to misinterpretation of CBC data. Current Interpretive Data was last revised on 2018. Imm gran pct 0.3 % [facility] Comment: Interpretive Data Percent cell count reference ranges are not reported, since discordance with absolute values may lead to misinterpretation of CBC data. Current Interpretive Data was last revised on 2018. Lymphocyte pct 40.8 % [facility] Comment: Interpretive Data Percent cell count reference ranges are not reported, since discordance with absolute values may lead to misinterpretation of CBC data. Current Interpretive Data was last revised on 2018. Monocyte pct 9.8 % [facility] Comment: Interpretive Data Percent cell count reference ranges are not reported, since discordance with absolute values may lead to misinterpretation of CBC data. Current Interpretive Data was last revised on 2018. Eosinophil pct 0.3 % [facility] Comment: Interpretive Data Percent cell count reference ranges are not reported, since discordance with absolute values may lead to misinterpretation of CBC data. Current Interpretive Data was last revised on 2018. Basophil pct 0.3 % [facility] Comment: Interpretive Data Percent cell count reference ranges are not reported, since discordance with absolute values may lead to misinterpretation of CBC data. Current Interpretive Data was last revised on 2018. Blood 11/09/2024 10:3 2 AM SKI MAKER 11/09/2024 10:43 AM SKI MAKER Adarsh Martinez MD LAB BLOOD ORDERABLES F inal Result [facility] [place] [address] * CBC with auto differential (11/09/2024 10:32 AM SKI MAKER) WBC 5.9 3.8 - 9.9 K/cumm Hgb 13.1 11.9 - 15.5 g/dL [facility] Hct 39.8 35.6 - 45.5 % [facility] Plt 182 150 - 400 K/cumm [facility] MPV 11.2 9.1 - 12.3 fL [facility] RBC 4.83 3.90 - 5.20 M/cumm [facility] MCV 82.4 81.3 - 96.4 fL [facility] MCH 27.1 27.1 - 33.3 pg [facility] MCHC 32.9 32.3 - 35.7 g/dL [facility] RDW CV 13.0 11.1 - 14.9 % [facility] RDW SD 39.2 35.7 - 48.1 fL [facility] NRBC abs 0.00 0.00 - 0.01 K/cumm [facility] Blood Venous blood specimen / Unknown 11/09/2024 10:32 AM SKI MAKER 11/09/2024 10:43 AM SKI MAKER Winter Garza MD LAB BLOOD ORDERABLES Final Result [facility] [place] [address] * Comprehensive metabolic panel (11/09/2024 10:32 AM SKI MAKER) Sodium 141 135 - 145 mmol/L Potassium, pl 4.4 3.3 - 4.9 mmol/L [facility] Chloride 106 97 - 110 mmol/L [facility] CO2 26 22 - 32 mmol/L [facility] Anion gap 9 2 - 15 mmol/L [facility] BUN 13 6 - 25 mg/dL [facility] Creatinine 0.93 0.60 - 1.10 mg/dL [facility] Glucose 95 70 - 199 mg/dL [facility] Comment: Interpretive Data Fasting glucose >/= [...] 2022. Calcium 9.2 8.5 - 10.3 mg/dL [facility] Bilirubin, total 0.2 0.1 - 1.2 mg/dL [facility] Protein, pl 7.7 6.5 - 8.5 g/dL [facility] Albumin 4.4 3.5 - 5.0 g/dL [facility] Alk phos 55 40 - 130 Units/L [facility] ALT 28 7 - 45 Units/L [facility] AST 25 10 - 45 Units/L [facility] Blood 11/09/2024 10:3 2 AM SKI MAKER 11/09/2024 10:43 AM SKI MAKER us Winter Garza MD LAB BLOOD ORDERABLES Final Result [facility] [place] [address] * POCT hCG, urine (11/09/2024 10:25 AM SKI MAKER) HCG, ur, POC Negative Negative Lot Number [id number] QC Backgroud Clear Acceptable QC Control Line Acceptable Urine 11/09/2024 10:2 5 AM SKI MAKER Winter Garza MD POINT OF CARE TEST ORDERABL ES Final Result * ECG 12-LEAD (11/09/2024 9:58 AM SKI MAKER) Narrative [facility] - 11/09/2024 9:58 AM SKI MAKER Adarsh Martinez MD 11/09/2024 10:00 AM ECG [...] Garza MD ECG ORDERABLES Final Resul t [facility] from Last 3 Months Insurance [facility] Care Teams Pear Picker Relationship Specialty Start Date End Date No, Physician PCP - General 11/29/23 No, Physician 11/29/23
[2025-01-09 23:26] VITALS: BP 135/88; PULSE 74; RESP 20; TEMP 36.7; O2SAT 100
--- NOTE | 2025-01-10 01:54 | PC.NURSE ---
Patient seen walking outside and down road by Security on cameras. Patient did not state she was leaving. Patient marked as left without being seen, triaged.
--- OUTSIDE RECORDS SUMMARY | 2025-01-10 02:00 | XMS_ITS | Clinical Summary ---
Author Organization [facility] ospital Address [address] [place] [address] Care Team Providers Care Coil Winding Supervisor Name Role Phone No, Physician Primary Care Provider [phone] No, Physician Unavailable Allergies No known active [...] Department Care Team Description 11/09/2024 10:18 AM ORDER EDITOR - 11/09/2024 1:04 PM ORDER EDITOR Emergency [facility] Emergency Department [address] [place] [address] Winter Garza MD Chest pain, unspecified type [...] on file Legal Sex Female 6:25 AM ORDER EDITOR Gender Identity Not on file Sexual Orientation Not on file Obstetrics History Para Term AB IAB SAB Ectopic Multiple Livin g Live Births 1 0 0 0 0 0 0 0 Date Outcome GA Total Labor Labor/2nd/3rd Weight Sex Type Anes PTL Melany A1 A5 Name Clin Last Filed Vital Signs Vital Sign Reading Time Taken Comments Blood Pressure 114/72 11/09/2024 1:04 PM ORDER EDITOR Pulse 70 11/09/2024 1:04 PM ORDER EDITOR Temperature 36.9 C (98.4 F) 11/09/2024 9:47 AM ORDER EDITOR Respiratory Rate 14 11/09/2024 1:04 PM ORDER EDITOR Oxygen Saturation 100% 11/09/2024 1:04 PM ORDER EDITOR Inhaled Oxygen Concentration - - Weight 85.6 kg (188 lb 11.4 oz) 024 11:14 AM ORDER EDITOR Height 177.8 cm (5' 10 ) 11/09/2024 9:47 AM ORDER EDITOR Body Mass Index - - Plan of [...] I HIGH-SENSITIVITY 2-HOUR Timed 11/09/2024 12:50 PM ORDER EDITOR TROPONIN I HIGH-SENSITIVITY SERIES (BASELINE, 2HR, 4HR, 6HR) STAT 11/09/2024 10:49 AM ORDER EDITOR XR CHEST PA LATERAL 2 VIEWS ED 11/09/2024 10:44 AM ORDER EDITOR EGFR STAT 11/09/2024 10:32 AM ORDER EDITOR DIFFERENTIAL AUTO STAT 11/09/2024 10: 32 AM ORDER EDITOR COMPREHENSIVE METABOLIC PANEL STAT 11/09/2024 10:32 AM ORDER EDITOR CBC WITH AUTO DIFFERENTIAL STAT 11/09/2024 10:32 AM ORDER EDITOR POCT HCG, URINE Routine 11/09/2024 10:25 AM ORDER EDITOR ECG 12-LEAD STAT 11/09/2024 9:58 AM ORDER EDITOR from Last 3 Months Results * Troponin I high-sensitivity 2-hour (11/09/2024 12:50 PM ORDER EDITOR) Trop I hs <4 <=17 ng/L Comment: Interpretive Data For further hscTnI resources including the diagnostic algorithm and an aid in interpretation, copy and paste this link: https://bjhlab.[facility].org/show/hsTrop-1 Current Interpretive Data last revised 2020. Trop I hs delta 0 ng/L [facility] Trop I hs interp Insignificant [facility] Blood 11/09/2024 12:5 0 PM ORDER EDITOR 11/09/2024 1:11 PM ORDER EDITOR us Winter Garza MD LAB BLOOD ORDERABLES Final Result [facility] [place] [address] * Troponin I high-sensitivity series (baseline, 2hr, 4hr, 6hr) (11/09/2024 10:49 AM ORDER EDITOR) Trop I hs <4 <=17 ng/L Comment: Interpretive Data For further hscTnI resources including the diagnostic algorithm and an aid in interpretation, copy and paste this link: https://bjhlab.[email or web address]/show/hsTrop-[email or web address] Current Interpretive Data last revised 2020. Blood 11/09/2024 10:4 9 AM ORDER EDITOR 11/09/2024 11:04 AM ORDER EDITOR Winter Garza MD LAB BLOOD ORDERABLES Final Result [facility] Department [place] [address] * XR Chest Pa Lateral 2 Views (11/09/2024 10:44 AM ORDER EDITOR) Anatomical Region Laterality Modality Body, Chest N/A Computed Radiogr aphy 11/09/2024 11:2 4 AM ORDER EDITOR Impressions 11/09/2024 12:02 PM ORDER EDITOR The current study is compared with the prior radiograph dated 10/25/2021. No consolidation, pleural effusion, or pneumothorax. Cardiomediastinal silhouette is normal. Dictated by: Sandra Krause M.D. The radiology attending physician has personally reviewed this study, and had reviewed and/or edited this written report and agrees with it. Electronically signed by: Ron Camara M.D. Narrative 11/09/2024 12:02 PM ORDER EDITOR EXAMINATION: 2 view chest radiograph Procedure Note [...] agrees with it. Electronically signed by: Ron aCmara M.D. Winter Garza MD IMG XR PROCEDURES Final Res ult * eGFR (11/09/2024 10:32 AM ORDER EDITOR) eGFR 90 >=60 mL/min/1. 73 m2 Comment: [...] reviewed 2021. Blood 11/09/2024 10:3 2 AM ORDER EDITOR 11/09/2024 10:43 AM ORDER EDITOR Adarsh Martinez MD LAB BLOOD ORDERABLES F inal Result [facility] Department of Laboratories [place], [place] [id number] * Differential, auto (11/09/2024 10:32 AM ORDER EDITOR) Neutrophil abs 2.9 1.5 - 6.5 K/cumm Imm gran abs 0.0 0.0 - 0.1 K/cumm [facility] Lymphocyte abs 2.4 0.8 - 3.3 K/cumm [facility] Monocyte abs 0.6 0.2 - 0.8 K/cumm [facility] Eosinophil abs 0.0 0.0 - 0.5 K/cumm [facility] Basophil abs 0.0 0.0 - 0.1 K/cumm [facility] Neutrophil pct 48.5 % [facility] Comment: Interpretive Data Percent cell count reference ranges are not reported, since discordance with absolute values may lead to misinterpretation of CBC data. Current Interpretive Data was last revised on 2018. Imm gran pct 0.3 % [facility] Comment: Interpretive Data Percent cell count reference ranges are not reported, since discordance with absolute values may lead to misinterpretation of CBC data. Current Interpretive Data was last revised on 2018. Lymphocyte pct 40.8 % [facility] Comment: Interpretive Data Percent cell count reference ranges are not reported, since discordance with absolute values may lead to misinterpretation of CBC data. Current Interpretive Data was last revised on 2018. Monocyte pct 9.8 % [facility] Comment: Interpretive Data Percent cell count reference ranges are not reported, since discordance with absolute values may lead to misinterpretation of CBC data. Current Interpretive Data was last revised on 2018. Eosinophil pct 0.3 % [facility] Comment: Interpretive Data Percent cell count reference ranges are not reported, since discordance with absolute values may lead to misinterpretation of CBC data. Current Interpretive Data was last revised on 2018. Basophil pct 0.3 % [facility] Comment: Interpretive Data Percent cell count reference ranges are not reported, since discordance with absolute values may lead to misinterpretation of CBC data. Current Interpretive Data was last revised on 2018. Blood 11/09/2024 10:3 2 AM ORDER EDITOR 11/09/2024 10:43 AM ORDER EDITOR us Adarsh Martinez MD LAB BLOOD ORDERABLES F inal Result [facility] One [facility] [place] [address] * CBC with auto differential (11/09/2024 10:32 AM ORDER EDITOR) [facility] WBC 5.9 3.8 - 9.9 K/cumm Hgb 13.1 11.9 - 15.5 g/dL [facility] Hct 39.8 35.6 - 45.5 % [facility] Plt 182 150 - 400 K/cumm [facility] MPV 11.2 9.1 - 12.3 fL [facility] RBC 4.83 3.90 - 5.20 M/cumm [facility] MCV 82.4 81.3 - 96.4 fL [facility] MCH 27.1 27.1 - 33.3 pg [facility] MCHC 32.9 32.3 - 35.7 g/dL [facility] RDW CV 13.0 11.1 - 14.9 % [facility] RDW SD 39.2 35.7 - 48.1 fL [facility] NRBC abs 0.00 0.00 - 0.01 K/cumm [facility] Blood Venous blood specimen / Unknown 11/09/2024 10:32 AM ORDER EDITOR 11/09/2024 10:43 AM ORDER EDITOR Winter Garza MD LAB BLOOD ORDERABLES Final Result [facility] One [facility] [place] [address] * Comprehensive metabolic panel (11/09/2024 10:32 AM ORDER EDITOR) [facility] Sodium 141 135 - 145 mmol/L Potassium, pl 4.4 3.3 - 4.9 mmol/L [facility] Chloride 106 97 - 110 mmol/L [facility] CO2 26 22 - 32 mmol/L [facility] Anion gap 9 2 - 15 mmol/L [facility] BUN 13 6 - 25 mg/dL [facility] Creatinine 0.93 0.60 - 1.10 mg/dL [facility] Glucose 95 70 - 199 mg/dL [facility] Comment: Interpretive Data Fasting glucose >/= [...] Calcium 9.2 8.5 - 10.3 mg/dL [facility] Bilirubin, total 0.2 0.1 - 1.2 mg/dL [facility] Protein, pl 7.7 6.5 - 8.5 g/dL [facility] Albumin 4.4 3.5 - 5.0 g/dL [facility] Alk phos 55 40 - 130 Units/L [facility] ALT 28 7 - 45 Units/L [facility] AST 25 10 - 45 Units/L [facility] Blood 11/09/2024 10:3 2 AM ORDER EDITOR 11/09/2024 10:43 AM ORDER EDITOR Winter Garza MD LAB BLOOD ORDERABLES Final Result [facility] One [facility] [place] [address] * POCT hCG, urine (11/09/2024 10:25 AM ORDER EDITOR) HCG, ur, POC Negative Negative Lot Number [id number] QC Backgroud Clear Acceptable QC Control Line Acceptable Urine 11/09/2024 10:2 5 AM ORDER EDITOR Winter Garza MD POINT OF CARE TEST ORDERABL ES Final Result * ECG 12-LEAD (11/09/2024 9:58 AM ORDER EDITOR) Narrative [facility] - 11/09/2024 9:58 AM ORDER EDITOR Adarsh Martinez MD 11/09/2024 10:00 AM ECG [...] Garza MD ECG ORDERABLES Final Resul t [facility] from Last 3 Months Insurance [facility] [place] Care Teams Coil Winding Supervisor Relationship Specialty Start Date End Date No, Physician PCP - General 11/29/23 No, Physician 11/29/23
--- OUTSIDE RECORDS SUMMARY | 2025-01-10 02:00 | XMS_ITS | Referral Summary ---
Author Organization [facility] ospital Address [address] [place] [address] Care Team Providers Care Bowling Ball Engraver Name Role Phone No, Physician Primary Care Provider [phone] No, Physician Unavailable Encounters Date Type Department Care Team Description 11/09/2024 10:18 AM TUB WASH OPERATOR - 11/09/2024 1:04 PM [facility] Emergency [facility] Emergency Department [address] [place] [address] Winter Garza MD Chest pain, unspecified type [...] on file Legal Sex Female 6:25 AM TUB WASH OPERATOR Gender Identity Not on file Sexual Orientation Not on file Last Filed Vital Signs Vital Sign Reading Time Taken Comments Blood Pressure 114/72 11/09/2024 1:04 PM TUB WASH OPERATOR Pulse 70 11/09/2024 1:04 PM TUB WASH OPERATOR Temperature 36.9 C (98.4 F) 11/09/2024 9:47 AM TUB WASH OPERATOR Respiratory Rate 14 11/09/2024 1:04 PM TUB WASH OPERATOR Oxygen Saturation 100% 11/09/2024 1:04 PM TUB WASH OPERATOR Inhaled Oxygen Concentration - - Weight 85.6 kg (188 lb 11.4 oz) 024 11:14 AM TUB WASH OPERATOR Height 177.8 cm (5' 10 ) 11/09/2024 9:47 AM TUB WASH OPERATOR Body Mass Index - - Plan of Treatment Not on file Procedures Procedure Name Priority Date/Time Associated Diagnosis Comments TROPONIN I HIGH-SENSITIVITY 2-HOUR Timed 11/09/2024 12:50 PM TUB WASH OPERATOR TROPONIN I HIGH-SENSITIVITY SERIES (BASELINE, 2HR, 4HR, 6HR) STAT 11/09/2024 10:49 AM TUB WASH OPERATOR XR CHEST PA LATERAL 2 VIEWS ED 11/09/2024 10:44 AM TUB WASH OPERATOR EGFR STAT 11/09/2024 10:32 AM TUB WASH OPERATOR DIFFERENTIAL AUTO STAT 11/09/2024 10: 32 AM TUB WASH OPERATOR COMPREHENSIVE METABOLIC PANEL STAT 11/09/2024 10:32 AM TUB WASH OPERATOR CBC WITH AUTO DIFFERENTIAL STAT 11/09/2024 10:32 AM TUB WASH OPERATOR POCT HCG, URINE Routine 11/09/2024 10:25 AM TUB WASH OPERATOR ECG 12-LEAD STAT 11/09/2024 9:58 AM TUB WASH OPERATOR from Last 3 Months Results * Troponin I high-sensitivity 2-hour (11/09/2024 12:50 PM TUB WASH OPERATOR) Trop I hs <4 <=17 ng/L Comment: Interpretive Data For further hscTnI resources including the diagnostic algorithm and an aid in interpretation, copy and paste this link: [email or web address] Current Interpretive Data last revised 2020. Trop I hs delta 0 ng/L [facility] Trop I hs interp Insignificant [facility] Blood 11/09/2024 12:5 0 PM TUB WASH OPERATOR 11/09/2024 1:11 PM TUB WASH OPERATOR Winter Garza MD LAB BLOOD ORDERABLES Final Result Performing Organization Address [facility] Co de Phone Number [facility] [place] [address] * Troponin I high-sensitivity series (baseline, 2hr, 4hr, 6hr) (11/09/2024 10:49 AM TUB WASH OPERATOR) Pathologist [facility] Trop I hs <4 <=17 ng/L Comment: Interpretive Data For further hscTnI resources including the diagnostic algorithm and an aid in interpretation, copy and paste this link: [email or web address] Current Interpretive Data last revised 2020. Blood 11/09/2024 10:4 9 AM TUB WASH OPERATOR 11/09/2024 11:04 AM TUB WASH OPERATOR Winter Garza MD LAB BLOOD ORDERABLES Final Result Performing Organization Address [facility]/ZIP Co de Phone Number [facility] [place] [address] * XR Chest Pa Lateral 2 Views (11/09/2024 10:44 AM TUB WASH OPERATOR) Anatomical Region Laterality Modality Body, Chest N/A Computed Radiogr aphy 11/09/2024 11:2 4 AM TUB WASH OPERATOR Impressions 11/09/2024 12:02 PM TUB WASH OPERATOR The current study is compared with the prior radiograph dated 10/25/2021. No consolidation, pleural effusion, or pneumothorax. Cardiomediastinal silhouette is normal. Dictated by: Sandra Krause M.D. The radiology attending physician has personally reviewed this study, and had reviewed and/or edited this written report and agrees with it. Electronically signed by: Ron Camara M.D. Narrative 11/09/2024 12:02 PM TUB WASH OPERATOR EXAMINATION: 2 view chest radiograph Procedure Note [...] Res ult * eGFR (11/09/2024 10:32 AM TUB WASH OPERATOR) eGFR 90 >=60 mL/min/1. 73 m2 Comment: [...] reviewed 2021. Blood 11/09/2024 10:3 2 AM TUB WASH OPERATOR 11/09/2024 10:43 AM TUB WASH OPERATOR us Adarsh Martinez MD LAB BLOOD ORDERABLES F inal Result [facility] Department [place] [address] * Differential, auto (11/09/2024 10:32 AM TUB WASH OPERATOR) Neutrophil abs 2.9 1.5 - 6.5 K/cumm Imm gran abs 0.0 0.0 - 0.1 K/cumm [facility] Lymphocyte abs 2.4 0.8 - 3.3 K/cumm [facility] Monocyte abs 0.6 0.2 - 0.8 K/cumm [facility] Eosinophil abs 0.0 0.0 - 0.5 K/cumm [facility] Basophil abs 0.0 0.0 - 0.1 K/cumm [facility] Neutrophil pct 48.5 % [facility] Comment: Interpretive Data Percent cell count reference ranges are not reported, since discordance with absolute values may lead to misinterpretation of CBC data. Current Interpretive Data was last revised on 2018. Imm gran pct 0.3 % [facility] Comment: Interpretive Data Percent cell count reference ranges are not reported, since discordance with absolute values may lead to misinterpretation of CBC data. Current Interpretive Data was last revised on 2018. Lymphocyte pct 40.8 % [facility] Comment: Interpretive Data Percent cell count reference ranges are not reported, since discordance with absolute values may lead to misinterpretation of CBC data. Current Interpretive Data was last revised on 2018. Monocyte pct 9.8 % [facility] Comment: Interpretive Data Percent cell count reference ranges are not reported, since discordance with absolute values may lead to misinterpretation of CBC data. Current Interpretive Data was last revised on 2018. Eosinophil pct 0.3 % [facility] Comment: Interpretive Data Percent cell count reference ranges are not reported, since discordance with absolute values may lead to misinterpretation of CBC data. Current Interpretive Data was last revised on 2018. Basophil pct 0.3 % [facility] Comment: Interpretive Data Percent cell count reference ranges are not reported, since discordance with absolute values may lead to misinterpretation of CBC data. Current Interpretive Data was last revised on 2018. Blood 11/09/2024 10:3 2 AM TUB WASH OPERATOR 11/09/2024 10:43 AM TUB WASH OPERATOR Adarsh Martinez MD LAB BLOOD ORDERABLES F inal Result [facility] Department [place] [address] * CBC with auto differential (11/09/2024 10:32 AM TUB WASH OPERATOR) WBC 5.9 3.8 - 9.9 K/cumm Hgb 13.1 11.9 - 15.5 g/dL [facility] Hct 39.8 35.6 - 45.5 % [facility] Plt 182 150 - 400 K/cumm [facility] MPV 11.2 9.1 - 12.3 fL [facility] RBC 4.83 3.90 - 5.20 M/cumm [facility] MCV 82.4 81.3 - 96.4 fL [facility] MCH 27.1 27.1 - 33.3 pg [facility] MCHC 32.9 32.3 - 35.7 g/dL [facility] RDW CV 13.0 11.1 - 14.9 % [facility] RDW SD 39.2 35.7 - 48.1 fL [facility] NRBC abs 0.00 0.00 - 0.01 K/cumm [facility] Blood Venous blood specimen / Unknown 11/09/2024 10:32 AM TUB WASH OPERATOR 11/09/2024 10:43 AM TUB WASH OPERATOR Winter Garza MD LAB BLOOD ORDERABLES Final Result [facility] Department [place] [address] * Comprehensive metabolic panel (11/09/2024 10:32 AM TUB WASH OPERATOR) Sodium 141 135 - 145 mmol/L Potassium, pl 4.4 3.3 - 4.9 mmol/L [facility] Chloride 106 97 - 110 mmol/L [facility] CO2 26 22 - 32 mmol/L [facility] Anion gap 9 2 - 15 mmol/L [facility] BUN 13 6 - 25 mg/dL [facility] Creatinine 0.93 0.60 - 1.10 mg/dL [facility] Glucose 95 70 - 199 mg/dL [facility] Comment: Interpretive Data Fasting glucose >/= [...] 2022. Calcium 9.2 8.5 - 10.3 mg/dL [facility] Bilirubin, total 0.2 0.1 - 1.2 mg/dL [facility] Protein, pl 7.7 6.5 - 8.5 g/dL [facility] Albumin 4.4 3.5 - 5.0 g/dL [facility] Alk phos 55 40 - 130 Units/L [facility] ALT 28 7 - 45 Units/L [facility] AST 25 10 - 45 Units/L [facility] Blood 11/09/2024 10:3 2 AM TUB WASH OPERATOR 11/09/2024 10:43 AM TUB WASH OPERATOR us Winter Garza MD LAB BLOOD ORDERABLES Final Result [facility] Department [place] [address] * POCT hCG, urine (11/09/2024 10:25 AM TUB WASH OPERATOR) HCG, ur, POC Negative Negative Lot Number [id number] QC Backgroud Clear Acceptable QC Control Line Acceptable Urine 11/09/2024 10:2 5 AM TUB WASH OPERATOR Winter Garza MD POINT OF CARE TEST ORDERABL ES Final Result * ECG 12-LEAD (11/09/2024 9:58 AM TUB WASH OPERATOR) Narrative [facility] - 11/09/2024 9:58 AM TUB WASH OPERATOR Adarsh Martinez MD 11/09/2024 10:00 AM ECG [...] Garza MD ECG ORDERABLES Final Resul t [facility] from Last 3 Months Insurance [facility] Care Teams Bowling Ball Engraver Relationship Specialty Start Date End Date No, Physician PCP - General 11/29/23 No, Physician 11/29/23
== END 2025-01-10 01:58 | disposition left against medical advice (07) ==
LOC: ANHED 01-10 01:58
DX: R06.02 Shortness of breath (principal)
CPT/HCPCS: 99199

== ENCOUNTER 2025-05-12 17:14 | Emergency (ER) | payer OTHER, SELFPAY ==
--- NOTE | ~2025-05-12 | US_ITS ---
EXAMINATION: US OB <=14 wk fetus w TV DATE: 05/12/2025 18:54 INDICATION: Abdominal pain and vaginal bleeding during first trimester TECHNIQUE: Real-time pelvic ultrasound utilizing both a transvaginal and transabdominal probe was pe rformed. The interpreting radiologist was not present for the study. COMPARISON: None. FINDINGS: The uterus measures 8.0 x 4.4 x 4.8 cm. The endometrial complex measures 2 mm in thickness with no d iscernible intrauterine gestational sac. The right ovary measures 4.2 x 2.2 x 3.0 cm. The left ovary measures 3.1 x 1.6 x 1.7 cm. There are a few subcentimeter bilateral ovarian cysts/follicles. Vascular flow identified in both ovaries on colo r Doppler. No other concerning masses identified at the bilateral adnexa. There is trace amount of an echoic free fluid in the pelvis. IMPRESSION: 1. No intrauterine gestational sac for which differential would include early , failed pregn darwin or ectopic . Correlate with serial beta-hCG levels with repeat ultrasound as clinically indicated. Reviewed, dictated and finalized at location A. IMPRESSION: 1. No intrauterine gestational sac for which differential would include early p regnancy, failed or ectopic . Correlate with serial beta-hCG levels with repeat ultrasound as clinically indicated.
--- OUTSIDE RECORDS SUMMARY | 2025-05-12 17:16 | XMS_ITS | Referral Summary ---
Author Organization [facility] ospital Address [address] [place] [address] Care Team Providers Care Tool Mechanic Name Role Phone No, Physician Primary Care Provider [phone] No, Physician Unavailable Allergies No known active [...] on file Legal Sex Female 6:25 AM FAMILY SERVICES WORKER Gender Identity Not on file Sexual Orientation Not on file Last Filed Vital Signs Vital Sign Reading Time Taken Comments Blood Pressure 114/72 11/09/2024 1:04 PM FAMILY SERVICES WORKER Pulse 70 11/09/2024 1:04 PM FAMILY SERVICES WORKER Temperature 36.9 C (98.4 F) 11/09/2024 9:47 AM FAMILY SERVICES WORKER Respiratory Rate 14 11/09/2024 1:04 PM FAMILY SERVICES WORKER Oxygen Saturation 100% 11/09/2024 1:04 PM FAMILY SERVICES WORKER Inhaled Oxygen Concentration - - Weight 85.6 kg (188 lb 11.4 oz) 024 11:14 AM FAMILY SERVICES WORKER Height 177.8 cm (5' 10) 11/09/2024 9:47 AM FAMILY SERVICES WORKER Body Mass Index - - Plan of Treatment Not on file Insurance [facility] SA[facility] [place] [address] Care Teams Tool Mechanic Relationship Specialty Start Date End Date No, Physician PCP - General 11/29/23 No, Physician 11/29/23
--- OUTSIDE RECORDS SUMMARY | 2025-05-12 17:16 | XMS_ITS | Clinical Summary ---
Author Organization [facility] o[facility] Address [address] [place] [address] Care Team Providers Care Ict Project Manager Name Role Phone No, Physician Primary Care Provider [phone] No, Physician Unavailable Allergies No known active [...] on file Legal Sex Female 6:25 AM INTERNAL SECURITY MANAGER Gender Identity Not on file Sexual Orientation Not on file Obstetrics History Para Term AB IAB SAB Ectopic Multiple Livin g Live Births 1 0 0 0 0 0 0 0 Date Outcome GA Total Labor Labor/2nd/3rd Weight Sex Type Anes PTL Melany A1 A5 Name Clin Last Filed Vital Signs Vital Sign Reading Time Taken Comments Blood Pressure 114/72 11/09/2024 1:04 PM INTERNAL SECURITY MANAGER Pulse 70 11/09/2024 1:04 PM INTERNAL SECURITY MANAGER Temperature 36.9 C (98.4 F) 11/09/2024 9:47 AM INTERNAL SECURITY MANAGER Respiratory Rate 14 11/09/2024 1:04 PM INTERNAL SECURITY MANAGER Oxygen Saturation 100% 11/09/2024 1:04 PM INTERNAL SECURITY MANAGER Inhaled Oxygen Concentration - - Weight 85.6 kg (188 lb 11.4 oz) 024 11:14 AM INTERNAL SECURITY MANAGER Height 177.8 cm (5' 10) 11/09/2024 9:47 AM INTERNAL SECURITY MANAGER Body Mass Index - - Plan of Treatment Health Maintenance Due Date Last Done Comments Chlamydia and Gonorrhea (GC/ CT) Screening 2004 Depression Screening 2004 Hepatitis C Screening 2004 Meningococcal B Vaccine (1 o f 2 - Standard) 2020 Regular Well Visit/Exam 18-64 2022 DTaP/Tdap/Td Vaccine (7 - Td or Tdap) 06/01/2024 06/01/2014, 12/06/2008, 08/16/2005, Additional history exists Influenza Vaccine (#1) 2025 , 12/12/2021, 12/18/2010, Additional history exists Hepatitis B Screening Completed 2004 , 2004, 2004, Additional history exists Pneumococcal vaccine <65 Completed 005, 2004, 2004, Additional history exists Varicella Vaccines Completed 12/06/2008, 0 06/05/2007, 08/16/2005 HPV Vaccines Completed 07/19/2015, 07/15, 06/01/2014 Meningococcal Vaccine Completed 12/12/2021 , 11/17/2020, 07/31/2015 Insurance [facility] Care Teams Ict Project Manager Relationship Specialty Start Date End Date No, Physician PCP - General 11/29/23 No, Physician 11/29/23
[2025-05-12 17:24] VITALS: BP 122/82; PULSE 85; RESP 16; TEMP 37.2; O2SAT 100
--- NOTE | 2025-05-12 17:36 | ED_ITS ---
HPI - General Chief complaint: Vaginal Bleeding <Tabatha Sampson APRN - Last Filed: 05/12/25 17:38> Stated complaint: VAG BLEEDING X 1 MONTH,CRAMPING +PREG TEST <Tabatha Sampson APRN - Last Filed: 05/12/25 17:38> Time Seen by Provider: 05/12/25 17:15 <Tabatha Sampson APRN - Last Filed: 05/12/25 17:38> Focused HPI: Patient is a 19-year-old female who presents to the ER with vaginal bleeding and abdominal cramping during . She reports her last menstrual period was about a month ago. Patient reports she has noticed vaginal bleeding for the past 1-2 weeks. She denies any visible clots. Patient reports this is her 4th and endorses to live births. She denies any other medical history relevant to this ER visit. Patient denies urinary symptoms, back pain, recent fevers, or abnormal discharge. GENERAL: Well-appearing, well-nourished, and in no acute distress. HEAD: Normocephalic, atraumatic. CHEST: Clear to auscultation. ?No respiratory distress. HEART: Regular rate and rhythm.? NEURO: ?Alert and oriented x3. Patient screened in triage and initial orders placed.? ?Additional care and disposition to be based upon?diagnostic testing and treatment. <Tabatha Sampson APRN - Last Filed: 05/12/25 17:38> History of Present Illness HPI Narrative: per HPI <Sherry Sheth MD - Last Filed: 05/12/25 19:18> Related Data Allergies/Adverse reactions: Allergies Allergy/AdvReac Type Severity Reaction Status Date / Time No Known Allergies Allergy Verified 07/13/24 14:07 <Tabatha Sampson APRN - Last Filed: 05/12/25 17:38> Review of Systems 2 Review of Systems: All systems reviewed & are unremarkable except as noted in HPI and below <Sherry Sheth MD - Last Filed: 05/12/25 19:18> PMFSH Past Medical History Medical History: Medical History Patient denies significant medical history <Tabatha Sampson APRN - Last Filed: 05/12/25 17:38> Family History Family History: Family History Other Unknown family medical history <Tabatha Becka Sampson REGENERATION OPERATOR - Last Filed: 05/12/25 17:38> Social History Social History: Social History Social History: patient denies tobacco or alcohol. Uses marijuana daily. Smoking status: Former smoker Second hand tobacco smoke exposure: No Alcohol intake: never Substance use: never Substance use type: marijuana Do You Feel Safe in your Home?: Yes Lack of Transportation: No Lack of Food: Never True Current Housing: I Have Housing Concerned About Future Housing: No Difficulty Paying Gas/Electric Bills: No Difficulty Paying for Meds: No Currently Unemployed: No Education: High School Diploma/GED Difficulty w/ Childcare or Family Care: No Living arrangements: other Additional living arrangements comments: fiance Occupation/Education: occupation Gender identity (if verbalized by the patient): Female Sexual Orientation (if Verbalized by the Patient): Straight or Heterosexual Spiritual care concerns: No <Tabatha LAntoine Sampson, REGENERATION OPERATOR - Last Filed: 05/12/25 17:38> Exam 2 Narrative: EXAMINATION OF ORGAN SYSTEMS/BODY AREAS: Constitutional: Vital signs per nursing GENERAL:[No acute distress, non-toxic appearing.] HEAD: Normal with no signs of head trauma. EYES: EOMI, conjunctiva normal ENT: Hearing grossly intact LUNGS: Nonlabored breathing. HEART: [Regular rate and rhythm] ABD: [Soft], [nontender to palpation] EXT: Normal range of motion SKIN: [No rashes or lesions.] NEURO: [Alert and oriented x 3. No gross focal sensory or strength deficits.] PSYCH: Normal affect <Sherry Sheth MD - Last Filed: 05/12/25 19:18> Course Vital Signs Vital signs: Vital Signs Temperature 99 F 05/12/25 17:24 Pulse Rate 85 05/12/25 17:24 Respiratory Rate 16 05/12/25 17:24 Blood Pressure 122/82 05/12/25 17:24 Pulse Oximetry 100 05/12/25 17:24 Oxygen Delivery Room Air 05/12/25 17:24 Temperature 99 F 05/12/25 17:24 Pulse Rate 85 05/12/25 17:24 Respiratory Rate 16 05/12/25 17:24 Blood Pressure 122/82 05/12/25 17:24 Pulse Oximetry 100 05/12/25 17:24 Oxygen Delivery Room Air 05/12/25 17:24 <Tabatha Sampson, REGENERATION OPERATOR - Last Filed: 05/12/25 17:38> Vital Signs Temperature 99 F 05/12/25 17:24 Pulse Rate 85 05/12/25 17:24 Respiratory Rate 16 05/12/25 17:24 Blood Pressure 122/82 05/12/25 17:24 Pulse Oximetry 100 05/12/25 17:24 Oxygen Delivery Room Air 05/12/25 17:24 Temperature 99 F 05/12/25 17:24 Pulse Rate 85 05/12/25 17:24 Respiratory Rate 16 05/12/25 17:24 Blood Pressure 122/82 05/12/25 17:24 Pulse Oximetry 100 05/12/25 17:24 Oxygen Delivery Room Air 05/12/25 17:24 <Sherry Sheth MD - Last Filed: 05/12/25 19:18> MDM - OB/Uterine Contractions MDM Narrative Medical decision making narrative: Patient presents here with cramping and bleeding, had positive test a few days ago. On exam she is very well-appearing, the bleeding has stopped, abdomen soft nontender. test here is negative, transvaginal ultrasound does not show anything in her uterus. Discussed with patient she may have had a miscarriage, she does have an OBGYN have asked her to follow-up with her OB and return for any further issues. < Sherry Sheth MD - Last Filed: 05/12/25 19:18> Lab Data Result diagrams: 05/12/25 17:55 05/12/25 17:55 <Tabatha Sampson, REGENERATION OPERATOR - Last Filed: 05/12/25 17:38> Labs: Lab Results 05/12/25 Range/Units 17:55 WBC 7.1 (4.5-10.0) K/mm3 RBC 4.54 (4.2-5.4) M/mm3 Hgb 12.4 (12.0-15.0) g/dL Hct 38.8 (37.0-47.0) % MCV 85.5 (80-100) fl MCH 27.3 (26-34) pg MCHC 32.0 (32-36) g/dl RDW 13.2 (11.5-14.5) % Plt Count 217 (150-375) k/mm3 MPV 10.9 H (7.4-10.4) fl Immature Gran % (Auto) 0.1 (0-0.5) % Neut % (Auto) 43.5 L (45.5-73.1) % Lymph % (Auto) 45.9 H (18.3-44.2) % Irwin % (Auto) 9.1 H (2.6-8.5) % Eos % (Auto) 1.0 (0-4.4) % Baso % (Auto) 0.4 (0.2-1.2) % Lymph # (Auto) 3.24 H (0.9-3.2) K/mm3 Irwin # (Auto) 0.6 (0.1-0.6) K/mm3 Eos # (Auto) 0.1 (0-0.3) K/mm3 Baso # (Auto) 0.0 (0.0-0.1) K/mm3 Abs Immat Gran (auto) 0.01 (0.00-0.031) K/mm3 Absolute Neuts (auto) 3.1 (1.3-6.7) K/mm3 Absolute Nucleated RBC 0.000 (0.0-0.012) K/mm3 Nucleated RBC % 0.0 (0.0-0.2) % PT 13.4 (11.1-14.7) Seconds INR 1.0 APTT 26.9 (22.3-36.8) Seconds Sodium 134 L (137-145) mmol/L Potassium 4.0 (3.4-5.0) mmol/L Chloride 102 (98-107) mmol/L Carbon Dioxide 28 (22-30) mmol/L Anion Gap 4 (4-12) mmol/L BUN 15 (7-17) mg/dL Creatinine 0.93 (0.7-1.0) mg/dL Estim Creat Clear Calc 92 ml/min Estimated GFR > 60 (59 - ) Glucose 95 (65-110) mg/dL Calcium 9.1 (8.4-10.2) mg/dL Total Bilirubin 0.3 (0.2-1.3) mg/dL AST 30 (14-36) U/L ALT 22 (6-35) U/L Alkaline Phosphatase 51 (38-126) U/L Total Protein 7.4 (6.3-8.2) g/dL Albumin 4.3 (3.5-5.1) g/dL Beta HCG, Quant < 2.39 mIU/ML Urine Color Yellow (Yellow) Urine Appearance Clear (Clear) Urine pH 6.0 (5.0-9.0) Ur Specific [place] 1.024 (1.001-1.035) Urine Protein 3+ H (Negative) mg/dL Urine Glucose (UA) Negative (Negative) mg/dL Urine Ketones Trace H (Negative) mg/dL Ur Blood (Man) Negative (Negative) Urine Nitrate Negative (Negative) Urine Bilirubin Negative (Negative) Urine Urobilinogen 0.2 (<2.0) mg/dL Leukocyte Esterase Rfl Negative (Negative) FRANK/UL Urine RBC 0-2 (0-2) /hpf Urine WBC 0-5 (0-3) /hpf Ur Squamous Epith Cells Occasional (Few) /hpf Urine Bacteria Rare /hpf Urine Casts 0-2 <Tabatha Sampson, REGENERATION OPERATOR - Last Filed: 05/12/25 17:38> Lab Results 05/12/25 Range/Units 17:55 WBC 7.1 (4.5-10.0) K/mm3 RBC 4.54 (4.2-5.4) M/mm3 Hgb 12.4 (12.0-15.0) g/dL Hct 38.8 (37.0-47.0) % MCV 85.5 (80-100) fl MCH 27.3 (26-34) pg MCHC 32.0 (32-36) g/dl RDW 13.2 (11.5-14.5) % Plt Count 217 (150-375) k/mm3 MPV 10.9 H (7.4-10.4) fl Immature Gran % (Auto) 0.1 (0-0.5) % Neut % (Auto) 43.5 L (45.5-73.1) % Lymph % (Auto) 45.9 H (18.3-44.2) % Irwin % (Auto) 9.1 H (2.6-8.5) % Eos % (Auto) 1.0 (0-4.4) % Baso % (Auto) 0.4 (0.2-1.2) % Lymph # (Auto) 3.24 H (0.9-3.2) K/mm3 Irwin # (Auto) 0.6 (0.1-0.6) K/mm3 Eos # (Auto) 0.1 (0-0.3) K/mm3 Baso # (Auto) 0.0 (0.0-0.1) K/mm3 Abs Immat Gran (auto) 0.01 (0.00-0.031) K/mm3 Absolute Neuts (auto) 3.1 (1.3-6.7) K/mm3 Absolute Nucleated RBC 0.000 (0.0-0.012) K/mm3 Nucleated RBC % 0.0 (0.0-0.2) % PT 13.4 (11.1-14.7) Seconds INR 1.0 APTT 26.9 (22.3-36.8) Seconds Sodium 134 L (137-145) mmol/L Potassium 4.0 (3.4-5.0) mmol/L Chloride 102 (98-107) mmol/L Carbon Dioxide 28 (22-30) mmol/L Anion Gap 4 (4-12) mmol/L BUN 15 (7-17) mg/dL Creatinine 0.93 (0.7-1.0) mg/dL Estim Creat Clear Calc 92 ml/min Estimated GFR > 60 (59 - ) Glucose 95 (65-110) mg/dL Calcium 9.1 (8.4-10.2) mg/dL Total Bilirubin 0.3 (0.2-1.3) mg/dL AST 30 (14-36) U/L ALT 22 (6-35) U/L Alkaline Phosphatase 51 (38-126) U/L Total Protein 7.4 (6.3-8.2) g/dL Albumin 4.3 (3.5-5.1) g/dL Beta HCG, Quant < 2.39 mIU/ML Urine Color Yellow (Yellow) Urine Appearance Clear (Clear) Urine pH 6.0 (5.0-9.0) Ur Specific [place] 1.024 (1.001-1.035) Urine Protein 3+ H (Negative) mg/dL Urine Glucose (UA) Negative (Negative) mg/dL Urine Ketones Trace H (Negative) mg/dL Ur Blood (Man) Negative (Negative) Urine Nitrate Negative (Negative) Urine Bilirubin Negative (Negative) Urine Urobilinogen 0.2 (<2.0) mg/dL Leukocyte Esterase Rfl Negative (Negative) FRANK/UL Urine RBC 0-2 (0-2) /hpf Urine WBC 0-5 (0-3) /hpf Ur Squamous Epith Cells Occasional (Few) /hpf Urine Bacteria Rare /hpf Urine Casts 0-2 <Sherry Sheth MD - Last Filed: 05/12/25 19:18> Discharge Plan Discharge Clinical Impression: Negative test <Tabatha Sampson APRN - Last Filed: 05/12/25 17:38> Patient Disposition: Home <Tabatha Sampson APRN - Last Filed: 05/12/25 17:38> Condition: Stable <Tabatha Sampson APRN - Last Filed: 05/12/25 17:38> Instructions: Miscarriage (ED) <Tabatha Sampson APRN - Last Filed: 05/12/25 17:38> Additional Instructions: Your test today was negative; your ultrasound did not show anything in your uterus. Unfortunately you might have experienced a miscarriage. Please follow up with your OBGYN and if you have any further concerning symptoms, come back to the ER. <Tabatha Sampson APRN - Last Filed: 05/12/25 17:38> Patient Language: Tamazight <Tabatha Sampson APRN - Last Filed: 05/12/25 17:38> Follow-up/Referrals: PHYSICIAN,FURNITURE CLEANER [Primary Care Provider] - Adrien Garcia MD [Physician] - 2 Days <Tabatha Sampson APRN - Last Filed: 05/12/25 17:38>
[2025-05-12 18:05] LABS: Hematocrit 38.8 % (37.0-47.0); Hemoglobin 12.4 g/dL (12.0-15.0); Immature Granulocyte Percent A 0.1 % (0-0.5); Lymphocytes Absolute Auto 3.24 K/mm3 (0.9-3.2); Mean Corpuscular HGB Conc 32.0 g/dl (32-36); Mean Corpuscular Hemoglobin 27.3 pg (26-34); Mean Corpuscular Volume 85.5 fl (80-100); Nucleated Red Blood Cells Absolute Auto 0.000 K/mm3 (0.0-0.012); Nucleated Red Blood Cells Perc 0.0 % (0.0-0.2); Platelet Count Result 217 k/mm3 (150-375); Red Blood Count 4.54 M/mm3 (4.2-5.4); White Blood Count 7.1 K/mm3 (4.5-10.0)
[2025-05-12 18:09] LABS: Add Urine Microscopic? YES; Appearance Urine Clear (Clear); Glucose Urine UA Negative (Negative); Leukocyte Esterase Ur Negative LEU/UL (Negative); Nitrate Urine Negative (Negative); Non Pathogenic Casts 0-2; Specific Grav Ur 1.024 (1.001-1.035)
[2025-05-12 18:20] LABS: INR 1.0; Partial Thromboplastin Time 26.9 Seconds (22.3-36.8); Prothrombin Time 13.4 Seconds (11.1-14.7)
[2025-05-12 18:31] LABS: Alanine Aminotransferase 22 U/L (6-35); Albumin Level 4.3 g/dL (3.5-5.1); Alkaline Phosphatase 51 U/L (38-126); Anion Gap 4 mmol/L (4-12); Aspartate Amino Transferase 30 U/L (14-36); Bilirubin,Total 0.3 mg/dL (0.2-1.3); Blood Urea Nitrogen 15 mg/dL (7-17); Calcium 9.1 mg/dL (8.4-10.2); Carbon Dioxide 28 mmol/L (22-30); Chloride 102 mmol/L (98-107); Estimated CRCL calculation 92 ml/min; Estimated Glomerular Filt Rate > 60; Glucose 95 mg/dL (65-110); Potassium 4.0 mmol/L (3.4-5.0); Sodium 134 mmol/L (137-145); Total Protein 7.4 g/dL (6.3-8.2)
[2025-05-12 18:47] LABS: Beta HCG Quantitative < 2.39 mIU/ML
--- OUTSIDE RECORDS SUMMARY | 2025-05-12 18:57 | XMS_ITS | Referral Summary ---
Author Organization [facility] Address [address] [place] [address] Care Team Providers Care Dinkey Press Operator Name Role Phone No, Physician Primary Care Provider [phone] No, Physician Unavailable Allergies No known active [...] on file Legal Sex Female 6:25 AM SUPERINTENDENT CONTAINER [employer]MINAL Gender Identity Not on file Sexual Orientation Not on file Last Filed Vital Signs Vital Sign Reading Time Taken Comments Blood Pressure 114/72 11/09/2024 1:04 PM SUPERINTENDENT CONTAINER [employer]MINAL Pulse 70 11/09/2024 1:04 PM SUPERINTENDENT CONTAINER [employer]MINAL Temperature 36.9 C (98.4 F) 11/09/2024 9:47 AM SUPERINTENDENT CONTAINER TERMINAL Respiratory Rate 14 11/09/2024 1:04 PM SUPERINTENDENT CONTAINER [employer]MINAL Oxygen Saturation 100% 11/09/2024 1:04 PM SUPERINTENDENT CONTAINER [employer]MINAL Inhaled Oxygen Concentration - - Weight 85.6 kg (188 lb 11.4 oz) 024 11:14 AM SUPERINTENDENT CONTAINER TERMINAL Height 177.8 cm (5' 10) 11/09/2024 9:47 AM SUPERINTENDENT CONTAINER TERMINAL Body Mass Index - - Plan of Treatment Not on file Insurance [facility] [place] [address] Care Teams Dinkey Press Operator Relationship Specialty Start Date End Date No, Physician PCP - General 11/29/23 No, Physician 11/29/23
--- OUTSIDE RECORDS SUMMARY | 2025-05-12 18:57 | XMS_ITS | Clinical Summary ---
Author Organization [facility] Address [address] [place] [address] Care Team Providers Care Vehicle Dynamics Engineer Name Role Phone No, Physician Primary Care Provider [phone] No, Physician Unavailable Allergies No known active [...] on file Legal Sex Female 6:25 AM FUELS ENGINEER Gender Identity Not on file Sexual [...] Comments Blood Pressure 114/72 11/09/2024 1:04 PM FUELS ENGINEER Pulse 70 11/09/2024 1:04 PM FUELS ENGINEER Temperature 36.9 C (98.4 F) 11/09/2024 9:47 AM FUELS ENGINEER Respiratory Rate 14 11/09/2024 1:04 PM FUELS ENGINEER Oxygen Saturation 100% 11/09/2024 1:04 PM FUELS ENGINEER Inhaled Oxygen Concentration - - Weight 85.6 kg (188 lb 11.4 oz) 024 11:14 AM FUELS ENGINEER Height 177.8 cm (5' 10) 11/09/2024 9:47 AM FUELS ENGINEER Body Mass Index - - Plan [...] Vaccine Completed 12/12/2021 , 11/17/2020, 07/31/2015 Insurance [facility] Care Teams Vehicle Dynamics Engineer Relationship Specialty Start Date End Date No, Physician PCP - General 11/29/23 No, Physician 11/29/23
[2025-05-12 19:57] VITALS: BP 116/81; PULSE 79; RESP 15; O2SAT 99
== END 2025-05-12 20:03 | disposition home or self-care (01) ==
PROVIDERS: Registered Nurse; Emergency Provider Emergency Medicine
DX: N93.9 Abnormal uterine and vaginal bleeding, unspecified (principal); Z87.891 Personal history of nicotine dependence
CPT/HCPCS: 36415; 76801; 76817; 80053; 81001; 84702; 85025; 85461; 85610; 85730; 86850; 86900; 86901; 99284